=== PATIENT | male | born 1960 | race Asian ===

== ENCOUNTER 2018-09-28 18:41 | Emergency (ER) | payer OTHER ==
[~2018-09-28] VITALS: Ht 162.6 cm; Wt 60.4 kg
[2018-09-28 18:44] VITALS: BP 153/57
[2018-09-28] MEDS ORDERED: LIDOCAINE-MPF 1%, 5ML INFIL ONE (19:00)
[2018-09-28] MEDS ORDERED: DIPH,PERTUSS(ACELL),TET VAC/PF 0.5 ML IM-VACC ONE ×2 (19:00→19:04)
[2018-09-28] MEDS ORDERED: LIDOCAINE-MPF 1%, 5ML ONE (19:03)
--- NOTE | 2018-09-28 19:10 | NUR ---
ASSESSMENT MADE. PA AT BEDSIDE.
== END 2018-09-28 20:06 | disposition home or self-care (01) ==
LOC: ED 20:00
DX: S61.411A Laceration without foreign body of right hand, initial encounter (principal); W01.0XXA Fall on same level from slipping, tripping and stumbling without subsequent striking against object, initial encounter; Y93.89 Activity, other specified; Y92.828 Other wilderness area as the place of occurrence of the external cause; Y99.8 Other external cause status
CPT/HCPCS: 90471; 90715